=== PATIENT | male | born 1960 | race Caucasian/White ===

== ENCOUNTER 2018-03-11 14:29 | Emergency (ER) | payer OTHER ==
[~2018-03-11] VITALS: Ht 165.1 cm; Wt 90.7 kg
[2018-03-11 14:44] VITALS: BP 150/91
[2018-03-11] MEDS: LIDOCAINE/EPI 1% 1:100000 20 ML VIAL INJ ONE (14:54)
[2018-03-11] MEDS ORDERED: LIDOCAINE MPF 1% - 5 mL VIAL 10 ML ONE (15:00)
[2018-03-11 15:53] VITALS: BP 124/76
== END 2018-03-11 15:54 | disposition home or self-care (01) ==
LOC: MED 14:29
DX: I83.92 Asymptomatic varicose veins of left lower extremity (principal); E11.9 Type 2 diabetes mellitus without complications; I10 Essential (primary) hypertension
CPT/HCPCS: 35226; 99284; J2001; 99281